=== PATIENT | female | born 1975 | race American Indian/Alaskan Native ===

== ENCOUNTER 2018-06-07 20:04 | Emergency (ER) | payer SELFPAY ==
[2018-06-07 20:30] VITALS: BMI 19.4
--- NOTE | 2018-06-07 21:19 | ED PDOC ---
Arrival/HPI - General Chief Complaint: Chest Pain Time Seen by Provider: 06/07/18 20:24 Historian: Patient - History of Present Illness Narrative History of Present Illness (Text): 06/07/18 20:30 42 year old female, whose past medical history includes hypertension, presents to the emergency department complaining of onset intermittent chest tightness associated with occasional twitching of right arm and right leg that began 2 days ago. Patient states she is on control pills. Patient denies any fever, chills, visual disturbance, cough, shortness of breath, headache, dizziness, or any other complaints. PMD: Dr. Stout Time/Duration: Other (2 days) Symptom Onset: Sudden Symptom Course: Intermittent Activities at Onset: Light Context: Home Past Medical History - Provider Review Nursing Documentation Reviewed: Yes - Infectious Disease Hx of Infectious Diseases: None - Reproductive Currently : No Family/Social History - Physician Review Nursing Documentation Reviewed: Yes Family/Social History: No Known Family HX Allergies/Home Meds Allergies/Adverse Reactions: Allergies No Known Allergies Allergy (Verified 06/10/18 12:39) Home Medications: Home Meds Medication Instructions Recorded Confirmed RX: Spironolactone [Aldactone] 25 mg PO DAILY 06/08/18 06/08/18 RX: amLODIPine [Norvasc] 5 mg PO DAILY 06/08/18 06/08/18 Review of Systems - Physician Review All systems were reviewed & negative as marked: Yes - Review of Systems Constitutional: absent: Fevers, Other (Chills) Eyes: absent: Vision Changes Respiratory: absent: Cough Cardiovascular: Chest Pain Musculoskeletal: Other (right arm and right leg twitching) Neurological: absent: Headache, Dizziness Physical Exam Vital Signs Reviewed: Yes Appearance: Positive for: Well-Appearing, Non-Toxic, Comfortable Pain Distress: None Mental Status: Positive for: Alert and Oriented X 3 - Systems Exam Head: Present: Atraumatic, Normocephalic Pupils: Present: PERRL Extroacular Muscles: Present: EOMI Conjunctiva: Present: Normal Ears: Present: NORMAL TM Mouth: Present: Moist Mucous Membranes Pharnyx: Present: Normal Neck: Present: Normal Range of Motion Respiratory/Chest: Present: Clear to Auscultation, Good Air Exchange. No: Respiratory Distress, Accessory Muscle Use Cardiovascular: Present: Regular Rate and Rhythm, Normal S1, S2. No: Murmurs Abdomen: No: Tenderness, Distention, Peritoneal Signs Back: Present: Normal Inspection Upper Extremity: Present: Normal Inspection, Normal ROM, Neurovascularly Intact. No: Cyanosis, Edema Lower Extremity: Present: Normal Inspection, Neurovascularly Intact. No: Edema, CALF TENDERNESS, Rafael's Sign, Tenderness, Swelling, Erythema Neurological: Present: GCS=15, CN II-XII Intact, Speech Normal, Motor Func Grossly Intact, Normal Sensory Function Skin: Present: Warm, Dry, Normal Color. No: Rashes Psychiatric: Present: Alert, Oriented x 3, Normal Insight, Normal Concentration Medical Decision Making ED Course and Treatment: 06/07/18 20:22 Impression: 42 year old female presents complaining of intermittent chest tightness associated with occasional twitching to the right arm and right leg that began 2 days ago. Plan: -- CT Head w/o contrast -- EKG -- Labs -- Chest X-ray -- Reassess and disposition Prior Visits: Notes and results from previous visits were reviewed. Progress Notes: 06/07/18 20:33 EKG shows NSR at 88 BPM with non-specific ST/T changes. Interpreted by me. 06/08/18 00:29 CXR Impression: As read by me, no acute process. CT SCAN OF THE BRAIN WITHOUT IV CONTRAST Electronically signed on Jun 08, 2018 12:48:37 AM EST by: Bladimir Muller M.D IMPRESSION: Normal unenhanced CT scan of the brain. 06/08/18 01:06 Case discussed with medical appointment scheduler and Dr. Mcdonough who is aware and agrees with the plan. Accepts patient into hospitalist service. - Lab Interpretations I have reviewed the lab results: Yes - RAD Interpretation Radiology Orders: 06/07/18 20:45 CHEST PORTABLE [RAD] Stat 06/07/18 20:47 HEAD W/O CONTRAST [CT] Stat Pattern Lease Inspector: ED Physician - EKG Interpretation Interpreted by ED Physician: Yes Type: 12 lead EKG - Scribe Statement The provider has reviewed the documentation as recorded by the Tayaibshelby Mann Provider Scribe Attestation: All medical record entries made by the Scribe were at my direction and personally dictated by me. I have reviewed the chart and agree that the record accurately reflects my personal performance of the history, physical exam, medical decision making, and the department course for this patient. I have also personally directed, reviewed, and agree with the discharge instructions and disposition. Disposition/Present on Arrival - Present on Arrival Any Indicators Present on Arrival: No History of DVT/PE: No History of Uncontrolled Diabetes: No Urinary Catheter: No History of Decub. Ulcer: No History Surgical Site Infection Following: None - Disposition Have Diagnosis and Disposition been Completed?: Yes Diagnosis: Chest pain Disposition: HOSPITALIZED Disposition Time: 01:07 Condition: STABLE Discharge Instructions (ExitCare): Chest Pain That Is Not Caused by the Heart (DC), Chest Pain (GEN) Additional Instructions: Follow up with your primary care doctor Dr Stout in 1 week of discharge. You can continue your home medications, Norvasc 5 mg daily and Aldactone 25 mg daily. If your twitching persists, follow up with a neurologist for further workup. Return to the emergency room for any return of symptoms. Referrals: Robert Stout MD [Primary Care Provider] - Forms: Inpatient D/C Instruction
[2018-06-07 21:32] LABS: HEMOGLOBIN 14.3 g/dL (12.0-16.0); MEAN CELL VOLUME 94.9 fl (80.0-105.0); MEAN CORPUSCULAR HEMOGLOBIN 31.8 pg (25.0-35.0); MEAN CORPUSCULAR HGB CONC 33.5 g/dl (31.0-37.0); MEAN PLATELET VOLUME 10.7 fl (7.0-11.0); RBC 4.5 10^6/uL (3.5-6.1); RED CELL DISTRIBUTION WIDTH 11.7 % (11.5-14.5); WHITE BLOOD COUNT 9.9 10^3/uL (4.5-11.0)
[2018-06-07 21:42] LABS: PARTIAL THROMBOPLASTIN TIME 35.6 Seconds (26.9-38.3); PROTHROMBIN TIME 11.1 SECONDS (9.4-12.5)
[2018-06-07 23:02] LABS: ALB/GLOB RATIO 1.2 (1.1-1.8); ALBUMIN 4.6 g/dL (3.0-4.8); ALT/SGPT 16 U/L (7-56); AST/SGOT 24 U/L (14-36); BLOOD UREA NITROGEN 13 mg/dL (7-21); CALCIUM 9.6 mg/dL (8.4-10.5); GFR NON-AFRICAN AMERICAN > 60
[2018-06-07 23:07] VITALS: RESP 18; TEMP 98.1; O2SAT 99
[2018-06-07 23:19] LABS: TROPONIN I < 0.01 ng/mL
--- NOTE | 2018-06-08 01:17 | CP.PCM.HP ---
<Jp Blanton - Last Filed: 06/08/18 02:50> History of Present Illness - History of Present Illness History of Present Illness: Jp Blanton, PGY1 H&P for Dr. Mcdonough cc: "intermittent chest pain with associated right eye, arm, leg twitching x2 days" Patient is a 42 year old female with PMHx HTN and Acne Vulgaris who presented to the ED for intermittent chest pain and twitching of the right eye, arm, and leg for 2 days in duration. In the ED, Vitals: Temp 98.1, HR 84, BP 126/78, RR 18, SaO2 99% on room air. Medical team consulted for evaluation. Patient says that her chest pain is on the right side of her body and "feels like a spasm." It is not sharp and does not radiate anywhere. She has no recent trauma. She has associated twitching of the right eye, right arm, and right leg for x2 days. She has been having recent emotional stressors with her family for the past 2 months. She denies sob, palpitations, nausea, vomiting, diarrhea, lightheadedness, dizziness, numbness/tingling of extremities, fevers, chills, visual changes. 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 No recent travel history. When the chest pain and twitching occurred, patient says that she had no associated tongue biting, bowel/bladder incontinence, or cnofusion. A full 12 point ROS was conducted and unremarkable except as stated above. PMD: Dr. Stout PMHx: HTN PSHx: Hysterectomy (2013), congenital heart defect surgery (age 4), foot surgery (17 years ago) Meds: Amlodipine 5mg daily, Aldactone 25mg daily (for acne), OCPs Allergies: NKDA SocialHx: Denies EtOH, smoking, and recreational drug use. Works with children. FamHx: mother has Parkinson's disease (60 y/o). No pre-mature CAD in family. Present on Admission - Present on Admission Any Indicators Present on Admission: No Review of Systems - Review of Systems All systems: reviewed and no additional remarkable complaints except (as per HPI.) Past Patient History - Infectious Disease Hx of Infectious Diseases: None - Past Social History Smoking Status: Never Smoked - CARDIAC Other/Comment: "whole in heart" fixed at 4 years old - GENITOURINARY/GYNECOLOGICAL Other/Comment: fibroids - PSYCHIATRIC Hx Substance Use: No - SURGICAL HISTORY Hx Hysterectomy: Yes Meds Allergies/Adverse Reactions: Allergies Allergy/AdvReac Type Severity Reaction Status Date / Time No Known Allergies Allergy Verified 06/08/18 12:54 Physical Exam - Constitutional Appears: No Acute Distress - Head Exam Head Exam: ATRAUMATIC, NORMAL INSPECTION, NORMOCEPHALIC - Eye Exam Eye Exam: EOMI, Normal appearance Pupil Exam: NORMAL ACCOMODATION - ENT Exam ENT Exam: Mucous Membranes Moist, Normal Exam - Respiratory Exam Respiratory Exam: Clear to Auscultation Bilateral, NORMAL BREATHING PATTERN. absent: Accessory Muscle Use, Chest Wall Tenderness, Rales, Rhonchi, Wheezes - Cardiovascular Exam Cardiovascular Exam: RRR, +S1, +S2 - GI/Abdominal Exam GI & Abdominal Exam: Normal Bowel Sounds, Soft. absent: Distended, Firm, Guarding, Organomegaly, Rebound, Rigid, Tenderness - Extremities Exam Extremities exam: Positive for: full ROM, normal capillary refill, normal inspection, pedal pulses present. Negative for: calf tenderness, joint swelling, pedal edema, tenderness Additional comments: +2 reflexes in all extremities. 5/5 motor strength in all extremities. Sensation intact in all extremities. - Back Exam Back exam: NORMAL INSPECTION - Neurological Exam Neurological exam: Alert, CN II-XII Intact, Oriented x3, Reflexes Normal - Psychiatric Exam Psychiatric exam: Normal Affect, Normal Mood - Skin Skin Exam: Dry, Intact, Normal Color, Warm Results - Vital Signs Recent Vital Signs: Last Vital Signs Temp 98.1 F 06/07/18 23:07 Pulse 84 06/07/18 23:07 Resp 18 06/07/18 23:07 BP 126/78 06/07/18 23:07 Pulse Ox 99 06/07/18 23:07 - Labs Result Diagrams: 06/07/18 21:21 06/07/18 22:40 Labs: Laboratory Results - last 24 hr 06/07/18 06/07/18 06/07/18 21:21 21:21 21:21 WBC 9.9 RBC 4.50 Hgb 14.3 Hct 42.7 MCV 94.9 MCH 31.8 MCHC 33.5 RDW 11.7 Plt Count 260 MPV 10.7 PT 11.1 INR 1.00 APTT 35.6 D-Dimer, Quantitative 218 Sodium Potassium Chloride Carbon Dioxide Anion Gap BUN Creatinine Est GFR ( Amer) Est GFR (Non-Af Amer) Random Glucose Calcium Total Bilirubin AST ALT Alkaline Phosphatase Lactate Dehydrogenase Total Creatine Kinase Troponin I Total Protein Albumin Globulin Albumin/Globulin Ratio 06/07/18 22:40 WBC RBC Hgb Hct MCV MCH MCHC RDW Plt Count MPV PT INR APTT D-Dimer, Quantitative Sodium 137 Potassium 4.4 Chloride 102 Carbon Dioxide 26 Anion Gap 13 BUN 13 Creatinine 0.7 Est GFR ( Amer) > 60 Est GFR (Non-Af Amer) > 60 Random Glucose 99 Calcium 9.6 Total Bilirubin 0.5 AST 24 ALT 16 Alkaline Phosphatase 68 Lactate Dehydrogenase 414 Total Creatine Kinase 54 Troponin I < 0.01 Total Protein 8.5 H Albumin 4.6 Globulin 3.8 Albumin/Globulin Ratio 1.2 Assessment & Plan - Assessment and Plan (Free Text) Assessment: Patient is a 42 year old female with PMHx HTN and Acne Vulgaris who presented to the ED for intermittent chest pain and twitching of the right eye, arm, and leg for 2 days in duration. Patient will be admitted for Atypical Chest Pain and Muscle Twitching. Plan: Atypical Chest Pain 2/2 emotional stressors vs muscle spasm - trend trops; negative x1 - acetaminophen prn - drug screen - Hgb A1c - CXR: no active cardiopulmonary disease - EKG : NSR at [address] or T wave changes. - D-dimer negative - ruled out PE; patient on OCPs Muscle Twitching of the right eye, arm, and leg - f/u results of Head CT (prelim read shows no acute changes) - Neurochecks - Will hold off on neurology consult for now; defer to day team Hx HTN - c/w amlodipine 5mg daily home med Hx Acne Vulgaris - c/w aldactone 25 mg daily home med DVT ppx: hep sc GI ppx: pepcid Diet: HHD Dispo: continue to monitor patient and follow up serial troponins. Case was discussed and reviewed with Attending Physician, Dr. Mcdonough <Deanna Mcdonough - Last Filed: 06/08/18 21:03> Results - Vital Signs Recent Vital Signs: Last Vital Signs Temp 98.1 F 06/07/18 23:07 Pulse 88 06/08/18 09:10 Resp 18 06/08/18 06:50 BP 117/74 06/08/18 09:10 Pulse Ox 99 06/08/18 06:50 - Labs Result Diagrams: 06/07/18 21:21 06/07/18 22:40 Labs: Laboratory Results - last 24 hr 06/07/18 06/07/18 06/07/18 21:21 21:21 21:21 WBC 9.9 RBC 4.50 Hgb 14.3 Hct 42.7 MCV 94.9 MCH 31.8 MCHC 33.5 RDW 11.7 Plt Count 260 MPV 10.7 PT 11.1 INR 1.00 APTT 35.6 D-Dimer, Quantitative 218 Sodium Potassium Chloride Carbon Dioxide Anion Gap BUN Creatinine Est GFR ( Amer) Est GFR (Non-Af Amer) Random Glucose Calcium Total Bilirubin AST ALT Alkaline Phosphatase Lactate Dehydrogenase Total Creatine Kinase Troponin I Total Protein Albumin Globulin Albumin/Globulin Ratio Triglycerides Cholesterol LDL Cholesterol Direct HDL Cholesterol Urine Opiates Screen Urine Methadone Screen Ur Barbiturates Screen Ur Phencyclidine Scrn Ur Amphetamines Screen U Benzodiazepines Scrn U Oth Cocaine Metabols U Cannabinoids Screen 06/07/18 06/08/18 06/08/18 22:40 01:15 03:30 WBC RBC Hgb Hct MCV MCH MCHC RDW Plt Count MPV PT INR APTT D-Dimer, Quantitative Sodium 137 Potassium 4.4 Chloride 102 Carbon Dioxide 26 Anion Gap 13 BUN 13 Creatinine 0.7 Est GFR ( Amer) > 60 Est GFR (Non-Af Amer) > 60 Random Glucose 99 Calcium 9.6 Total Bilirubin 0.5 AST 24 ALT 16 Alkaline Phosphatase 68 Lactate Dehydrogenase 414 Total Creatine Kinase 54 Troponin I < 0.01 Total Protein 8.5 H Albumin 4.6 Globulin 3.8 Albumin/Globulin Ratio 1.2 Triglycerides 89 Cholesterol 214 H LDL Cholesterol Direct 120 HDL Cholesterol 71 H Urine Opiates Screen Negative Urine Methadone Screen Negative Ur Barbiturates Screen Negative Ur Phencyclidine Scrn Negative Ur Amphetamines Screen Negative U Benzodiazepines Scrn Negative U Oth Cocaine Metabols Negative U Cannabinoids Screen Negative 06/08/18 06/08/18 06:00 11:15 WBC RBC Hgb Hct MCV MCH MCHC RDW Plt Count MPV PT INR APTT D-Dimer, Quantitative Sodium Potassium Chloride Carbon Dioxide Anion Gap BUN Creatinine Est GFR ( Amer) Est GFR (Non-Af Amer) Random Glucose Calcium Total Bilirubin AST ALT Alkaline Phosphatase Lactate Dehydrogenase Total Creatine Kinase Troponin I < 0.01 < 0.01 Total Protein Albumin Globulin Albumin/Globulin Ratio Triglycerides Cholesterol LDL Cholesterol Direct HDL Cholesterol Urine Opiates Screen Urine Methadone Screen Ur Barbiturates Screen Ur Phencyclidine Scrn Ur Amphetamines Screen U Benzodiazepines Scrn U Oth Cocaine Metabols U Cannabinoids Screen Attending/Attestation - Attestation I have personally seen and examined this patient.: Yes I have fully participated in the care of the patient.: Yes I have reviewed all pertinent clinical information: Yes Notes (Text): 06/08/18 21:02 Patient was seen when she was in the ER. Agree with history, physical examination, assessment and plan.
[2018-06-08 01:29] LABS: HDL CHOLESTEROL 71 mg/dL (29-60)
[2018-06-08 01:40] LABS: LDL CHOLESTEROL 120 mg/dL (0-129)
[2018-06-08 04:36] LABS: BARBITURATES, UR NEGATIVE (NEGATIVE); BENZODIAZEPINES, UR NEGATIVE (NEGATIVE); OPIATES, UR NEGATIVE (NEGATIVE); PHENCYCLIDINE, UR NEGATIVE (NEGATIVE)
[2018-06-08 09:12] VITALS: BP 117/74; PULSE 88
--- NOTE | 2018-06-08 10:15 | RAD ---
Date of service: 06/08/2018 HISTORY: Chest tightness COMPARISON: No prior. FINDINGS: LUNGS: No active pulmonary disease. PLEURA: No significant pleural effusion identified, no pneumothorax apparent. CARDIOVASCULAR: No aortic atherosclerotic calcification present. Normal cardiac size. No pulmonary vascular congestion. OSSEOUS STRUCTURES: There is mild dextroscoliosis centered in the lower thoracic region VISUALIZED UPPER ABDOMEN: Normal. OTHER FINDINGS: None. IMPRESSION: No active disease.
--- NOTE | 2018-06-08 11:17 | CT ---
Date of service: 06/08/2018 PROCEDURE: CT HEAD WITHOUT CONTRAST. HISTORY: Twitching arm/leg/face COMPARISON: None available. TECHNIQUE: Axial computed tomography images were obtained through the head/brain without intravenous contrast. Radiation dose: Total exam DLP = 942.9 mGy-cm. This CT exam was performed using one or more of the following dose reduction techniques: Automated exposure control, adjustment of the mA and/or kV according to patient size, and/or use of iterative reconstruction technique. FINDINGS: HEMORRHAGE: No intracranial hemorrhage. BRAIN: No mass effect or edema. No atrophy or chronic microvascular ischemic changes. VENTRICLES: Unremarkable. No hydrocephalus. CALVARIUM: Unremarkable. Numerous skin surface calcifications are present, predominately located in the frontotemporal regions. Present. PARANASAL SINUSES: Frontal sinuses are hypoplastic. There is opacification of the residual aerated portion of the left frontal sinus. There is also mild mucosal thickening ethmoid air complex and to a lesser degree sphenoid sinus. There is a small osteoma seen within the 1 of the right posterior superior ethmoid air cells. MASTOID AIR CELLS: Unremarkable as visualized. No inflammatory changes. OTHER FINDINGS: None. IMPRESSION: No acute intracranial hemorrhage. See above discussion for additional details and findings.
--- NOTE | 2018-06-08 13:14 | CP.PCM.DIS ---
<Silvia Chang - Last Filed: 06/08/18 17:05> Provider - Provider Date of Admission: 06/08/18 02:25 Attending physician: Maryann Chacko MD Primary care physician: Robert Stout MD Time Spent in preparation of Discharge (in minutes): 60 Diagnosis - Discharge Diagnosis (1) Chest pain due to psychological stress Status: Acute (2) Twitching Status: Acute Hospital Course - Lab Results Lab Results: Most Recent Lab Values WBC 9.9 10^3/uL (4.5-11.0) 06/07/18 21:21 RBC 4.50 10^6/uL (3.5-6.1) 06/07/18 21:21 Hgb 14.3 g/dL (12.0-16.0) 06/07/18 21:21 Hct 42.7 % (36.0-48.0) 06/07/18 21:21 MCV 94.9 fl (80.0-105.0) 06/07/18 21:21 MCH 31.8 pg (25.0-35.0) 06/07/18 21:21 MCHC 33.5 g/dl (31.0-37.0) 06/07/18 21:21 RDW 11.7 % (11.5-14.5) 06/07/18 21:21 Plt Count 260 10^3/uL (120.0-450.0) 06/07/18 21:21 MPV 10.7 fl (7.0-11.0) 06/07/18 21:21 PT 11.1 SECONDS (9.4-12.5) 06/07/18 21:21 INR 1.00 06/07/18 21:21 APTT 35.6 Seconds (26.9-38.3) 06/07/18 21:21 D-Dimer, Quantitative 218 ng/mlDDU (0-243) 06/07/18 21:21 Sodium 137 mmol/L (132-148) 06/07/18 22:40 Potassium 4.4 mmol/L (3.6-5.0) 06/07/18 22:40 Chloride 102 mmol/L (98-107) 06/07/18 22:40 Carbon Dioxide 26 mmol/L (21-33) 06/07/18 22:40 Anion Gap 13 (10-20) 06/07/18 22:40 BUN 13 mg/dL (7-21) 06/07/18 22:40 Creatinine 0.7 mg/dl (0.7-1.2) 06/07/18 22:40 Est GFR ( Amer) > 60 06/07/18 22:40 Est GFR (Non-Af Amer) > 60 06/07/18 22:40 Random Glucose 99 mg/dL (70-110) 06/07/18 22:40 Calcium 9.6 mg/dL (8.4-10.5) 06/07/18 22:40 Total Bilirubin 0.5 mg/dL (0.2-1.3) 06/07/18 22:40 AST 24 U/L (14-36) 06/07/18 22:40 ALT 16 U/L (7-56) 06/07/18 22:40 Alkaline Phosphatase 68 U/L (38-126) 06/07/18 22:40 Lactate Dehydrogenase 414 U/L (333-699) 06/07/18 22:40 Total Creatine Kinase 54 U/L (35-230) 06/07/18 22:40 Troponin I < 0.01 ng/mL 06/08/18 11:15 Total Protein 8.5 g/dL (5.8-8.3) H 06/07/18 22:40 Albumin 4.6 g/dL (3.0-4.8) 06/07/18 22:40 Globulin 3.8 gm/dL 06/07/18 22:40 Albumin/Globulin Ratio 1.2 (1.1-1.8) 06/07/18 22:40 Triglycerides 89 mg/dL (35-160) 06/08/18 01:15 Cholesterol 214 mg/dL (130-200) H 06/08/18 01:15 LDL Cholesterol Direct 120 mg/dL (0-129) 06/08/18 01:15 HDL Cholesterol 71 mg/dL (29-60) H 06/08/18 01:15 Urine Opiates Screen Negative (NEGATIVE) 06/08/18 03:30 Urine Methadone Screen Negative (NEGATIVE) 06/08/18 03:30 Ur Barbiturates Screen Negative (NEGATIVE) 06/08/18 03:30 Ur Phencyclidine Scrn Negative (NEGATIVE) 06/08/18 03:30 Ur Amphetamines Screen Negative (NEGATIVE) 06/08/18 03:30 U Benzodiazepines Scrn Negative (NEGATIVE) 06/08/18 03:30 U Oth Cocaine Metabols Negative (NEGATIVE) 06/08/18 03:30 U Cannabinoids Screen Negative (NEGATIVE) 06/08/18 03:30 - Hospital Course Hospital Course: This is a 42 year old female with PMHx HTN, Acne Vulgaris, congenital heart disease (repaired at age 4), who presented to the ED for intermittent chest pain and twitching of the right eye, arm, and leg for 2 days in duration. Patient says that her chest pain is on the right side of her body and "feels like a spasm." It is not sharp and does not radiate anywhere. She has no recent trauma. 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 She has been having recent emotional stressors with her family for the past 2 months, due to her brother's immigration status. She denies sob, palpitations, nausea, vo miting, diarrhea, lightheadedness, dizziness, numbness/tingling of extremities, fevers, chills, visual changes. 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 No recent travel history. In ED, patient's vital signs were stable. EKG showed HR 88 NSR, No ST/T wave chnages. Troponins were negative x3. D dimer obtained was negative, CXR showed no cardiomegaly or pna. Patient states that she feels better now, and will follow up with her primary care doctor Argelia. Patient instructed to follow up with a neurologist if these symptoms persist. Patient agrees and states that she would like to go home. Case seen and discussed with attending, Dr Chacko. Discharge Exam - Head Exam Head Exam: ATRAUMATIC, NORMAL INSPECTION, NORMOCEPHALIC - Eye Exam Eye Exam: EOMI, PERRL. absent: Conjunctival injection, Nystagmus, Scleral icterus Pupil Exam: NORMAL ACCOMODATION, PERRL. absent: Irregular, Miosis, Unequal - ENT Exam ENT Exam: Mucous Membranes Moist - Neck Exam Neck exam: Full Rom - Respiratory Exam Respiratory Exam: Clear to PA & Lateral, NORMAL BREATHING PATTERN. absent: Accessory Muscle Use, Chest Wall Tenderness, Wheezes, Respiratory Distress - Cardiovascular Exam Cardiovascular Exam: RRR, +S1, +S2. absent: Systolic Murmur - GI/Abdominal Exam GI & Abdominal Exam: Normal Bowel Sounds, Soft. absent: Distended, Firm, Guarding, Organomegaly, Pulsatile Mass, Rebound, Rigid, Tenderness - Extremities Exam Extremities exam: normal inspection - Back Exam Back exam: NORMAL INSPECTION - Neurological Exam Neurological exam: Alert, Oriented x3 - Psychiatric Exam Psychiatric exam: Normal Affect, Normal Mood - Skin Skin Exam: Dry, Normal Color, Warm Discharge Plan - Follow Up Plan Condition: STABLE Disposition: HOSPITALIZED Instructions: Chest Pain That Is Not Caused by the Heart (DC), Chest Pain (GEN) Additional Instructions: Follow up with your primary care doctor Dr Stout in 1 week of discharge. You can continue your home medications, Norvasc 5 mg daily and Aldactone 25 mg daily. If your twitching persists, follow up with a neurologist for further workup. Return to the emergency room for any return of symptoms. Referrals: Robert Stout MD [Primary Care Provider] - <Maryann Chacko - Last Filed: 06/08/18 17:20> Provider - Provider Primary care physician: Robert Stout MD Hospital Course - Lab Results Lab Results: Most Recent Lab Values WBC 9.9 10^3/uL (4.5-11.0) 06/07/18 21:21 RBC 4.50 10^6/uL (3.5-6.1) 06/07/18 21:21 Hgb 14.3 g/dL (12.0-16.0) 06/07/18 21:21 Hct 42.7 % (36.0-48.0) 06/07/18 21:21 MCV 94.9 fl (80.0-105.0) 06/07/18 21:21 MCH 31.8 pg (25.0-35.0) 06/07/18 21:21 MCHC 33.5 g/dl (31.0-37.0) 06/07/18 21:21 RDW 11.7 % (11.5-14.5) 06/07/18 21:21 Plt Count 260 10^3/uL (120.0-450.0) 06/07/18 21:21 MPV 10.7 fl (7.0-11.0) 06/07/18 21:21 PT 11.1 SECONDS (9.4-12.5) 06/07/18 21:21 INR 1.00 06/07/18 21:21 APTT 35.6 Seconds (26.9-38.3) 06/07/18 21:21 D-Dimer, Quantitative 218 ng/mlDDU (0-243) 06/07/18 21:21 Sodium 137 mmol/L (132-148) 06/07/18 22:40 Potassium 4.4 mmol/L (3.6-5.0) 06/07/18 22:40 Chloride 102 mmol/L (98-107) 06/07/18 22:40 Carbon Dioxide 26 mmol/L (21-33) 06/07/18 22:40 Anion Gap 13 (10-20) 06/07/18 22:40 BUN 13 mg/dL (7-21) 06/07/18 22:40 Creatinine 0.7 mg/dl (0.7-1.2) 06/07/18 22:40 Est GFR ( Amer) > 60 06/07/18 22:40 Est GFR (Non-Af Amer) > 60 06/07/18 22:40 Random Glucose 99 mg/dL (70-110) 06/07/18 22:40 Calcium 9.6 mg/dL (8.4-10.5) 06/07/18 22:40 Total Bilirubin 0.5 mg/dL (0.2-1.3) 06/07/18 22:40 AST 24 U/L (14-36) 06/07/18 22:40 ALT 16 U/L (7-56) 06/07/18 22:40 Alkaline Phosphatase 68 U/L (38-126) 06/07/18 22:40 Lactate Dehydrogenase 414 U/L (333-699) 06/07/18 22:40 Total Creatine Kinase 54 U/L (35-230) 06/07/18 22:40 Troponin I < 0.01 ng/mL 06/08/18 11:15 Total Protein 8.5 g/dL (5.8-8.3) H 06/07/18 22:40 Albumin 4.6 g/dL (3.0-4.8) 06/07/18 22:40 Globulin 3.8 gm/dL 06/07/18 22:40 Albumin/Globulin Ratio 1.2 (1.1-1.8) 06/07/18 22:40 Triglycerides 89 mg/dL (35-160) 06/08/18 01:15 Cholesterol 214 mg/dL (130-200) H 06/08/18 01:15 LDL Cholesterol Direct 120 mg/dL (0-129) 06/08/18 01:15 HDL Cholesterol 71 mg/dL (29-60) H 06/08/18 01:15 Urine Opiates Screen Negative (NEGATIVE) 06/08/18 03:30 Urine Methadone Screen Negative (NEGATIVE) 06/08/18 03:30 Ur Barbiturates Screen Negative (NEGATIVE) 06/08/18 03:30 Ur Phencyclidine Scrn Negative (NEGATIVE) 06/08/18 03:30 Ur Amphetamines Screen Negative (NEGATIVE) 06/08/18 03:30 U Benzodiazepines Scrn Negative (NEGATIVE) 06/08/18 03:30 U Oth Cocaine Metabols Negative (NEGATIVE) 06/08/18 03:30 U Cannabinoids Screen Negative (NEGATIVE) 06/08/18 03:30 Attending/Attestation - Attestation I have personally seen and examined this patient.: Yes I have fully participated in the care of the patient.: Yes I have reviewed all pertinent clinical information, including history, physical exam and plan: Yes Notes (Text): 06/08/18 17:16 42 year old female with past medical history of hypertension and congenital heart disease who presented with complaint of atypical chest pain for 2 days and twitching of right eye for past several weeks. Serial cardiac enzymes were negative and ACS was ruled out. EKG did not show ischemic signs. She also reported recent negative stress test. Patient is discharged home to follow up with pmd and cardiology. If twitching persists consider outpatient neurology evaluation. Maryann Chacko MD Hospitalist.
--- NOTE | 2018-06-08 21:27 | CARD ---
APPROVED REPORT Date of service: 06/07/2018 EKG Measurement Heart [id number] <Conclusion> Normal sinus rhythm Possible Left atrial enlargement Borderline ECG
== END 2018-06-08 14:57 | disposition home or self-care (01) ==
LOC: ED 20:04 → ERH 06-08 02:25 → UNDOADMOB 06-08 02:25 → ED 06-08 14:57
DX: R25.3 Fasciculation (principal); R07.89 Other chest pain; I10 Essential (primary) hypertension
CPT/HCPCS: 70450; 71045; 80053; 80061; 82550; 83036; 83615; 84484; 85027; 85378; 85610; 85730; 93005; 96372; 99284; G0480; J1644